=== PATIENT | male | born 1995 | race Caucasian/White ===

== ENCOUNTER 2019-11-27 12:41 | Emergency (ER) | payer SELFPAY ==
[~2019-11-27] VITALS: Ht 179.1 cm; Wt 84.0 kg
[~2019-11-27 12:41] MED LIST: ZOF4T PO
[2019-11-27 12:58] VITALS: BP 134/87
== END 2019-11-27 15:55 | disposition home or self-care (01) ==
LOC: ER 12:41
DX: R59.0 Localized enlarged lymph nodes (principal); Z79.899 Other long term (current) drug therapy
CPT/HCPCS: 76881; 99284